=== PATIENT | female | born 1965 | race African-American/Black ===

== ENCOUNTER → 2017-02-19 | Outpatient (CLI) | payer OTHER | LOC: BMCIMAGING 15:37 | PROVIDERS: ATTEND Internal Medicine Rheumatology | DX: R07.9 Chest pain, unspecified (principal) ==

== ENCOUNTER → 2018-01-25 | Outpatient (CLI) | payer OTHER | LOC: BMCIMAGING 11:52 | PROVIDERS: ATTEND Physician Assistant | DX: M79.641 Pain in right hand (principal); M79.642 Pain in left hand ==

== ENCOUNTER → 2018-10-03 | Outpatient (CLI) | payer OTHER | LOC: FIMAGING 11:55 ==